=== PATIENT | male | born 1980 | race Two or more races ===

== ENCOUNTER 2016-10-01 20:57 | Inpatient (IN) | payer MEDICAID ==
[~2016-10-01] VITALS: Ht 188 cm; Wt 123.0 kg
[2016-10-01] MEDS ORDERED: DILTIAZEM HCL 25 MG/5 ML VIAL IV ONE ×4 (21:09→21:45)
[2016-10-01 21:23] LABS: Basophils # (auto) 0.1 uL; Basophils % (auto) 0.5 % (0.0-2.0); Eosinophils # (auto) 0.1 uL; Eosinophils % (auto) 0.5 % (0.0-7.0); Hemoglobin 15.3 g/dL (13.5-17.5); Lymphocytes # (auto) 3.5 uL; Lymphocytes % (auto) 23.9 % (10.0-50.0); Mean Corpuscular Hemoglobin 28.6 pg (28.0-32.0); Mean Corpuscular Hgb Conc. 33.2 g/dL (32.0-36.0); Mean Corpuscular Volume 86.2 fL (80.0-100.0); Mean Platelet Volume 8.4 fL (7.4-10.4); Monocytes # (auto) 0.9 uL; Monocytes % (auto) 5.8 % (0.0-12.0); Neutrophils # (auto) 10.1 uL; Neutrophils % (auto) 69.3 % (37.0-80.0); Platelet Count (auto) 297 10^3/uL (140-450); Red Cell Distribution Width 11.7 % (11.6-16.0); White Blood Cell 14.6 10^3/uL (4.4-10.8)
[2016-10-01 21:38] LABS: INR 1.01 (0.9-1.15); Prothrombin Time 10.4 sec (9.37-12.3)
[2016-10-01 21:41] LABS: Albumin 3.7 g/dL (3.4-5.0); Calcium 8.1 mg/dL (8.5-10.1); Magnesium 2.1 mg/dL (1.6-2.6); Potassium 3.7 mmol/L (3.5-5.1)
[2016-10-01 21:48] LABS: BUN/Creatinine Ratio 12.7; Bilirubin, Total 0.4 mg/dL (0.2-1.0); Total Protein 7.6 g/dL (6.4-8.2)
[2016-10-01 21:50] LABS: B-Type Natriuretic Peptide 5.63 pg/mL (0-100)
[2016-10-01] MEDS ORDERED: AMIODARONE HCL 900 MG in DEXTROSE 500 ML IV SCH (22:11)
[2016-10-01] MEDS ORDERED: AMIODARONE HCL 150 MG in D5W 5% 100 ML IV ONE (22:15)
[2016-10-01] MEDS ORDERED: METO25TA5 PO (23:13)
[2016-10-01] MEDS ORDERED: ASPirin 81 mg TAB PO ONE (23:45)
[2016-10-01] MEDS ORDERED: NITROGLYCERIN 0.4 MG SL TAB SL PRN (23:45)
[2016-10-01] MEDS ORDERED: LACTULOSE 20Gm/30ML SOLN PO PRN (23:45)
[2016-10-01] MEDS ORDERED: MORPHINE SULF INJ 2 MG/ML SYRINGE 1ML IV PRN (23:45)
[2016-10-01] MEDS: SODIUM CHLORIDE 0.9% 1,000 ML IV SCH (23:55)
[2016-10-02] VITALS (51 sets, daily range): BP systolic 97–154; BP diastolic 53–85
[2016-10-02] MEDS ORDERED: DEXTROSE (50%) 50ML SYRG IV PRN (00:15)
[2016-10-02] MEDS ORDERED: METO25TA5 PO (01:34)
[2016-10-02] MEDS ORDERED: AMIODARONE HCL 900 MG in DEXTROSE 500 ML IV SCH (04:11)
[2016-10-02] MEDS ORDERED: PNEUMOCOCCAL VACC POLYS 25 MCG/0.5 ML VIAL IM ONE (06:00)
[2016-10-02 06:42] LABS: Basophils # (auto) 0.1 uL; Basophils % (auto) 0.6 % (0.0-2.0); Eosinophils # (auto) 0.1 uL; Eosinophils % (auto) 1.6 % (0.0-7.0); Hematocrit 41.6 % (41.0-53.0); Hemoglobin 13.6 g/dL (13.5-17.5); Lymphocytes # (auto) 2.1 uL; Lymphocytes % (auto) 23.5 % (10.0-50.0); Mean Corpuscular Hemoglobin 28.3 pg (28.0-32.0); Mean Corpuscular Hgb Conc. 32.6 g/dL (32.0-36.0); Mean Corpuscular Volume 86.7 fL (80.0-100.0); Mean Platelet Volume 8.2 fL (7.4-10.4); Monocytes # (auto) 0.6 uL; Monocytes % (auto) 6.6 % (0.0-12.0); Neutrophils % (auto) 67.7 % (37.0-80.0); Platelet Count (auto) 232 10^3/uL (140-450); White Blood Cell 8.9 10^3/uL (4.4-10.8)
[2016-10-02] MEDS: LEVOTHYROXINE SODIUM 88 MCG TAB PO SCH (06:47)
[2016-10-02] MEDS: ACCU-CHEK COMFORT CURVE STRIP VI SCH ×3 (06:50→18:23)
[2016-10-02] MEDS: InsuLIN REG 1unit/0.01ml Soln (100units/ml) SC SCH ×3 (06:50→18:00)
[2016-10-02 07:13] LABS: Albumin 3.4 g/dL (3.4-5.0); Bilirubin, Total 0.5 mg/dL (0.2-1.0); Calcium 8.4 mg/dL (8.5-10.1); Potassium 4.1 mmol/L (3.5-5.1); Total Protein 6.6 g/dL (6.4-8.2)
[2016-10-02] MEDS: ENALAPRIL MALEATE 10 MG TAB PO SCH (10:00)
[2016-10-02] MEDS ORDERED: ENOXAPARIN SOD 30 MG/0.3 ML SYRINGE SC SCH (10:00)
[2016-10-02] MEDS: ENOXAPARIN SOD 40 MG/0.4 ML SYRINGE SC SCH (10:00)
[2016-10-02] MEDS: SODIUM CHLORIDE 0.9% 1,000 ML IV SCH (12:11)
[2016-10-02] MEDS: ASPirin 81 mg TAB PO SCH (15:28)
[2016-10-02] MEDS: PANTOPRAZOLE SODIUM 40 MG/10 ML VIAL IV SCH (15:28)
[2016-10-02] MEDS: METOPROLOL TARTRATE 25 MG TAB PO SCH ×2 (15:42→22:20)
[2016-10-02] MEDS ORDERED: ATORVASTATIN 20 MG TAB PO SCH (22:00)
[2016-10-03] MEDS: SODIUM CHLORIDE 0.9% 1,000 ML IV SCH ×2 (00:34→14:02)
[2016-10-03 04:38] VITALS: BP 105/68
[2016-10-03] MEDS: ACCU-CHEK COMFORT CURVE STRIP VI SCH ×4 (06:00→17:38)
[2016-10-03] MEDS: InsuLIN REG 1unit/0.01ml Soln (100units/ml) SC SCH ×4 (06:00→17:38)
[2016-10-03] MEDS: LEVOTHYROXINE SODIUM 88 MCG TAB PO SCH (06:42)
[2016-10-03 09:00] VITALS: BP 109/67
[2016-10-03] MEDS: ENOXAPARIN SOD 40 MG/0.4 ML SYRINGE SC SCH (09:36)
[2016-10-03] MEDS: ASPirin 81 mg TAB PO SCH (09:36)
[2016-10-03] MEDS: PANTOPRAZOLE SODIUM 40 MG/10 ML VIAL IV SCH (09:36)
[2016-10-03] MEDS: ENALAPRIL MALEATE 10 MG TAB PO SCH (09:37)
[2016-10-03] MEDS: METOPROLOL TARTRATE 25 MG TAB PO SCH (09:38)
[2016-10-03 13:01] VITALS: BP 120/68
[2016-10-03 16:10] VITALS: BP 120/68
[2016-10-03 17:04] VITALS: BP 120/68
[2016-10-03 17:11] VITALS: BP 113/70
[2016-10-05 12:49] LABS: Hepatitis B Surface Antibody Positive
== END 2016-10-03 18:08 | disposition home or self-care (01) | DRG 201 ==
LOC: EDUNIT# 20:57 → ER 21:00 → TELE-WESTW 21:01 → ICU WEST 10-02 00:24 → TELE-WESTW 10-02 20:11
PROVIDERS: ADMIT Family Medicine; ATTEND Internal Medicine Pulmonary Disease
DX: I47.1 Supraventricular tachycardia (principal); N17.0 Acute kidney failure with tubular necrosis; E11.65 Type 2 diabetes mellitus with hyperglycemia; I10 Essential (primary) hypertension; E03.9 Hypothyroidism, unspecified; E83.51 Hypocalcemia; I48.0 Paroxysmal atrial fibrillation; Z23 Encounter for immunization
CPT/HCPCS: 36415; 71010; 78452; 80053; 80061; 82962; 83036; 83735; 83880; 84443; 84484; 85025; 85049; 85379; 85610; 85730; 86704; 86706; 86708; 86803; 87081; 87340; 93005; 93017; 93306; 94761; 96365; 96366; 96375; C9113; G0434; J7060